=== PATIENT | female | born 1955 | race Caucasian/White ===

== ENCOUNTER 2019-03-04 06:53 | Day surgery (SDC) | payer OTHER ==
[2019-03-04] MEDS ORDERED: Lactated Ringers 1,000 ML IV SCH (07:00)
[2019-03-04] MEDS ORDERED: Sodium Chloride 0.9% 10 ML Syringe FLUSH PRN (07:00)
[2019-03-04] MEDS ORDERED: Lidocaine 1%/Sod Bicarbonate in NS 8.4% 1 ML Syringe IDERM PRN (07:00)
[2019-03-04] MEDS ORDERED: Propofol 200 MG/20 ML SDV ONE (07:14)
[2019-03-04] MEDS ORDERED: Midazolam 1 MG/ML 2 ML SDV ONE (07:14)
[2019-03-04] MEDS ORDERED: Lidocaine 1% 4 ML ONE (07:14)
--- NOTE | 2019-03-04 07:43 | PCM.PREANE ---
Preanesthetic Assessment - Anesthesia/Transfusion/Family Hx Anesthesia History: Prior Anesthesia Reaction Type of Anesthesia Reaction: Excessive Nausea/Vomiting - Review of Systems General: No Symptoms Pulmonary: Other (JOAN with CPAP use ) Cardiovascular: No Symptoms Gastrointestinal: No Symptoms Neurological: No Symptoms Other: Reports: Depression, Anxiety - Physical Assessment NPO Status Date: 03/04/19 NPO Status Time: 05:00 Vital Signs: Last Vital Signs Temp 36.8 C 03/04/19 07:10 Pulse 57 L 03/04/19 07:10 Resp 16 03/04/19 07:10 BP 121/72 03/04/19 07:10 Pulse Ox 97 03/04/19 07:10 Height: 1.68 m Weight: 78.018 kg ASA Class: 2 Mental Status: Alert & Oriented x3 Airway Class: Mallampati = 2 Dentition: Reports: Normal Dentition Thyro-Mental Finger Breadths: 2 Mouth Opening Finger Breadths: 3 ROM/Head Extension: Full Lungs: Clear to Auscultation, Normal Respiratory Effort Cardiovascular: Regular Rate, Regular Rhythm - Allergies Allergies/Adverse Reactions: Allergies Allergy/AdvReac Type Severity Reaction Status Date / Time No Known Allergies Allergy Verified 03/04/19 07:41 - Acknowledgements Anesthesia Type Planned: MAC Pt an Appropriate Candidate for the Planned Anesthesia: Yes Alternatives and Risks of Anesthesia Discussed w Pt/Guardian: Yes Pt/Guardian Understands and Agrees with Anesthesia Plan: Yes PreAnesthesia Questionnaire HEENT History: Reports: Allergic Rhinitis Cardiovascular History: Reports: Hypertension Respiratory History: Reports: Sleep Apnea Gastrointestinal History: Reports: None Genitourinary History: Reports: None 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 SPECIALIST 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: Reports: , Other (See Below) Other OB/BYN History: dense breasts Musculoskeletal History: Reports: None Neurological History: Reports: None Psychiatric History: Reports: Anxiety, Depression Endocrine/Metabolic History: Reports: Osteopenia Hematologic History: Reports: None Immunologic History: Reports: None Oncologic (Cancer) History: Reports: None Dermatologic History: Reports: Other (See Below) Other Dermatologic History: lumpectomy - Past Surgical History Head Surgeries/Procedures: Reports: None HEENT Surgical History: Reports: None Cardiovascular Surgical History: Reports: None Respiratory Surgical History: Reports: None GI Surgical History: Reports: Colonoscopy Female Surgical History: Reports: Section, Hysterectomy Endocrine Surgical History: Reports: None Neurological Surgical History: Reports: None Musculoskeletal Surgical History: Reports: None Oncologic Surgical History: Reports: None - SUBSTANCE USE Smoking Status *Q: Former Smoker Days Per Week of Alcohol Use: 2 Number of Drinks Per Day: 2 Total Drinks Per Week: 4 Recreational Drug Use History: No - HOME MEDS Home Medications: Home Meds Ascorbate Calcium/Bioflavonoid [Mckenzie-C 1,000 mg Tablet] 1 tab PO DAILY [History] Calcium Citrate/Vitamin D3 [Citracal + D Maximum Caplet] 4 tab PO DAILY [History] Cholecalciferol (Vitamin D3) [Vitamin D3] 2,000 unit PO DAILY 03/03/19 [History] Desvenlafaxine Succinate [Desvenlafaxine Succinate ER] 100 mg PO DAILY 03/03/19 [History] Docosahexanoic Acid [DHA] 100 mg PO DAILY 03/03/19 [History] Estradiol [Estrace 0.01% Vaginal Crm] 1 dose VAG Q72H 03/03/19 [History] Natural Calm 2 tsp PO DAILY 03/03/19 [History] Olmesartan Medoxomil [Benicar] 40 mg PO DAILY 03/03/19 [History] [place]-3/DHA/Epa/Fish Oil [[place] 3 500 Softgel] 1 cap PO DAILY 03/03/19 [History] - CURRENT (IN HOUSE) MEDS Current Meds: Current Medications Lactated Ringer's (Ringers, Lactated) 1,000 mls @ 125 mls/hr IV ASDIRECTED LUISA Stop: 03/04/19 23:00 Last Admin: 03/04/19 07:25 Dose: 125 mls/hr Lidocaine/Sodium Bicarbonate (Buffered Lidocaine 1% In Ns 8.4%) 0.25 ml IDERM ONETIME PRN PRN Reason: Prior to IV Start Stop: 03/04/19 18:00 Last Admin: 03/04/19 07:25 Dose: 0.25 ml Sodium Chloride (Saline Flush) 10 ml FLUSH ASDIRECTED PRN PRN Reason: Keep Vein Open Stop: 03/04/19 18:00 Discontinued Medications Lidocaine HCl (Xylocaine-Mpf 1%) Confirm Administered Dose 4 mls @ as directed .ROUTE .STK-MED ONE Stop: 03/04/19 07:15 Midazolam HCl (Versed 1 Mg/Ml) Confirm Administered Dose 2 mg .ROUTE .STK-MED ONE Stop: 03/04/19 07:15 Propofol (Diprivan 20 Ml) Confirm Administered Dose 400 mg .ROUTE .STK-MED ONE Stop: 03/04/19 07:15
[2019-03-04] MEDS ORDERED: Ondansetron 4 MG/2 ML SDV ONE (08:18)
--- NOTE | 2019-03-04 08:34 | PCM48HPAN ---
Post Anesthesia Note - EVALUATION WITHIN 48HRS OF ANESTHETIC Vital Signs in Normal Range: Yes Patient Participated in Evaluation: Yes Respiratory Function Stable: Yes Airway Patent: Yes Cardiovascular Function Stable: Yes Hydration Status Stable: Yes Pain Control Satisfactory: Yes Nausea and Vomiting Control Satisfactory: Yes Mental Status Recovered: Yes Vital Signs: Last Vital Signs See nursing notes
--- NOTE | 2019-03-04 16:04 | OR ---
DATE OF OPERATION: 03/04/2019 SURGEON: Jelani Lind MD PREOPERATIVE DIAGNOSIS: Colorectal cancer screening. POSTOPERATIVE DIAGNOSIS: Colorectal cancer screening. OPERATION PERFORMED: Screening colonoscopy. ANESTHESIA: MAC. FINDINGS: Normal colonoscopy. No polyps. No diverticulosis. Excellent bowel prep. PATHOLOGY: None. COMPLICATIONS: None. ESTIMATED BLOOD LOSS: None. DISPOSITION: Stable at the end of the procedure. INDICATION: Annemarie is a 63-year-old female, 10 years out from her last colonoscopy. She presented to my office for colorectal cancer screening. She has no family history. She is asymptomatic. She was offered a screening colonoscopy per the standard of care. She was fully informed of the major risks of the procedure. These include, but are not limited to perforation of the colon, bleeding, the risks of anesthesia and the possibility of further surgery. She gave informed consent of what was done. DESCRIPTION OF PROCEDURE: She was brought to the gastro suite and placed in the left lateral decubitus position. She was given monitored anesthesia care. A digital rectal exam was performed with copious lubrication. This was unremarkable. I introduced the colonoscope into the rectum with copious lubrication. I advanced the scope keeping the lumen in view at all times with gentle forward pressure. I reached the cecum and identified the cecum photographically. I slowly investigated the colon from the cecum back to the anus in an exam lasting 7 minutes. She had no polyps, no diverticulosis. At the end of the procedure, the scope was withdrawn. Air was evacuated on the way out. She was moved to recovery in stable condition. PLAN: She will need another colonoscopy in 10 years. MMODAL /[id number]
== END 2019-03-04 09:06 | disposition home or self-care (01) ==
LOC: JD.SDS 06:53
PROVIDERS: ATTEND Surgery
DX: Z12.11 Encounter for screening for malignant neoplasm of colon (principal); I10 Essential (primary) hypertension; F32.9 Major depressive disorder, single episode, unspecified; M19.90 Unspecified osteoarthritis, unspecified site; Z79.899 Other long term (current) drug therapy; Z87.891 Personal history of nicotine dependence
CPT/HCPCS: 45378; J2001; J2250; J2405; J2704; J7120; 00812

== ENCOUNTER 2020-03-01 10:17 | Emergency (ER) | payer OTHER ==
[2020-03-01] MEDS ORDERED: Acetaminophen 325 MG Tab PO ONE (10:56)
[2020-03-01] MEDS ORDERED: Ketorolac 60 MG/2 ML SDV IM ONE (10:56)
[2020-03-01] MEDS ORDERED: predniSONE 20 MG Tab PO ONE (10:58)
--- NOTE | 2020-03-01 11:27 | EDM.PDOC ---
ED HPI GENERAL MEDICAL PROBLEM - General Chief Complaint: Back Pain or Injury Stated Complaint: L LEG PAIN Time Seen by Provider: 03/01/20 10:44 Source of Information: Reports: Patient, RN Notes Reviewed - History of Present Illness INITIAL COMMENTS - FREE TEXT/NARRATIVE: Comes in with L low back pain that started about 2 days ago, severe pain this AM L low back that radiates down L leg. Has done some lifting last few days with fall garden stuff. Has had similar sx in the past but not this bad. Has an appt next week to see a "back specialist" in [place] Lower Back Pain Score (Numeric/FACES): 8 - Related Data Allergies Allergy/AdvReac Type Severity Reaction Status Date / Time No Known Allergies Allergy Verified 03/01/20 10:30 Home Meds: Home Meds Ascorbate Calcium/Bioflavonoid [Mckenzie-C 1,000 mg Tablet] 1 tab PO DAILY 03/03/19 [History] Calcium Citrate/Vitamin D3 [Citracal + D Maximum Caplet] 2 tab PO BID 03/03/19 [History] Cholecalciferol (Vitamin D3) [Vitamin D3] 2,000 unit PO DAILY 03/03/19 [History] Desvenlafaxine Succinate [Desvenlafaxine Succinate ER] 100 mg PO DAILY 03/03/19 [History] Docosahexaenoic Acid [DHA] 100 mg PO DAILY 03/03/19 [History] Natural Calm 2 tsp PO DAILY 03/03/19 [History] Olmesartan Medoxomil [Benicar] 40 mg PO DAILY 03/03/19 [History] [place]-3/DHA/Epa/Fish Oil [[place] 3 500 Softgel] 1 cap PO DAILY 03/03/19 [History] estradioL [Estrace 0.01% Vaginal Crm] 1 dose VAG MOTH 03/03/19 [History] Acetaminophen/HYDROcodone [[place] 325-5 MG] 1 tab PO Q6H PRN #20 tablet 03/01/20 [Rx] predniSONE [Prednisone] 50 mg PO DAILY #4 tablet 03/01/20 [Rx] Past Medical History HEENT History: Reports: Allergic Rhinitis Cardiovascular History: Reports: Hypertension Respiratory History: Reports: Sleep Apnea Gastrointestinal History: Reports: None Genitourinary History: Reports: None 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: , Other (See Below) Other NETWORK 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 History: dense breasts Musculoskeletal History: Reports: None Neurological History: Reports: None Psychiatric History: Reports: Anxiety, Depression Endocrine/Metabolic History: Reports: Osteopenia Hematologic History: Reports: None Immunologic History: Reports: None Oncologic (Cancer) History: Reports: None Dermatologic History: Reports: Other (See Below) Other Dermatologic History: lumpectomy - Past Surgical History Head Surgeries/Procedures: Reports: None HEENT Surgical History: Reports: None Cardiovascular Surgical History: Reports: None Respiratory Surgical History: Reports: None GI Surgical History: Reports: Colonoscopy Female Surgical History: Reports: Section, Hysterectomy Endocrine Surgical History: Reports: None Neurological Surgical History: Reports: None Musculoskeletal Surgical History: Reports: None Oncologic Surgical History: Reports: None Social & Family History - Tobacco Use Smoking Status *Q: Never Smoker - Caffeine Use Caffeine Use: Reports: Coffee - Recreational Drug Use Recreational Drug Use: No ED ROS GENERAL - Review of Systems Review Of Systems: See Below Constitutional: Denies: Fever, Chills, Diaphoresis HEENT: Reports: No Symptoms Respiratory: Reports: No Symptoms. Denies: Cough Cardiovascular: Denies: Chest Pain GI/Abdominal: Denies: Abdominal Pain Musculoskeletal: Reports: Back Pain, Leg Pain Skin: Reports: No Symptoms Neurological: Denies: Numbness, Tingling, Trouble Speaking, Weakness ED EXAM,LOWER BACK PAIN/INJURY - Physical Exam Exam: See Below General Appearance: Alert, Mild Distress Head: Atraumatic Neck: Supple Respiratory/Chest: No Respiratory Distress, Lungs Clear Cardiovascular: Regular Rate, Rhythm GI/Abdominal: Non-Tender Back Exam: Other (very mild tenderness L buttock, no back swelling, warmth or erythema). No: Paraspinal Tenderness, Vertebral Tenderness Extremities: Normal Inspection Neurological: Alert, No Motor/Sensory Deficits Skin Exam: Warm, Dry, Normal Color, No Rash Course - Vital Signs Last Recorded V/S: Last Vital Signs Temp 98.4 F 03/01/20 12:05 Pulse 58 L 03/01/20 12:05 Resp 18 03/01/20 12:05 BP 125/80 03/01/20 12:05 Pulse Ox 99 03/01/20 12:05 - Orders/Labs/Meds Meds: Medications Discontinued Medications Generic Name Dose Route Start Last Admin Trade Name Freq PRN Reason Stop Dose Admin Acetaminophen 975 mg 03/01/20 10:56 03/01/20 11:16 Tylenol PO 03/01/20 10:57 975 mg NOW ONE Administration Ketorolac Tromethamine 60 mg 03/01/20 10:56 03/01/20 11:17 Toradol IM 03/01/20 10:57 60 mg ONETIME ONE Administration Prednisone 40 mg 03/01/20 10:58 03/01/20 11:16 Prednisone PO 03/01/20 10:59 40 mg ONETIME ONE Administration - Re-Assessments/Exams Free Text/Narrative Re-Assessment/Exam: 03/02/20 08:40 Have given torodol IM, prednisone PO, discharge instr. as documented. Departure - Departure Time of Disposition: 11:34 Disposition: Home, Self-Care 01 Condition: Fair Clinical Impression: Back pain Qualifiers: Back pain location: low back pain Chronicity: acute Back pain laterality: left Sciatica presence: with sciatica Sciatica laterality: sciatica of left side Qualified Code(s): M54.42 - Lumbago with sciatica, left side - Discharge Information Prescriptions: Acetaminophen/HYDROcodone [[place] 325-5 MG] 1 tab PO Q6H PRN #20 tablet PRN Reason: Pain predniSONE [Prednisone] 50 mg PO DAILY #4 tablet Instructions: Acute Back Pain, Adult Referrals: Rupinder Call [facility] [facility] [Primary Care Provider] - Forms: ED Department Discharge Additional Instructions: rest back, non heavy lifting. Alternate heat and ice as needed. You have been given the first dose of prednisone here in the ED and also tylenol and torodol IM. Prednisone 50 mg Q am for the next 4 days with your next dose tomorrow AM. hydrocodone 1 tab q 6 to 8 hr as needed for severe pain. Prescriptions [facility]. See your provider next week as planned, return to ED as needed if symptoms worsening in any way. Sepsis Event Note (ED) - Evaluation Sepsis Screening Result: No Definite Risk
== END 2020-03-01 12:05 | disposition home or self-care (01) ==
LOC: JD.ED 10:17
DX: M54.42 Lumbago with sciatica, left side (principal); I10 Essential (primary) hypertension; F32.9 Major depressive disorder, single episode, unspecified; Z79.899 Other long term (current) drug therapy
CPT/HCPCS: 96372; 99283; A9270; J1885; J7512

== ENCOUNTER 2022-11-28 23:58 | Emergency (ER) | payer MEDICARE, BC ==
[2022-11-29] MEDS ORDERED: Acetaminophen 325 MG Tab PO ONE (01:08)
== END 2022-11-29 01:20 | disposition home or self-care (01) ==
LOC: JD.ED 23:58
DX: S63.502A Unspecified sprain of left wrist, initial encounter (principal); I10 Essential (primary) hypertension; Z79.899 Other long term (current) drug therapy; W18.30XA Fall on same level, unspecified, initial encounter
CPT/HCPCS: 73110-26-LT; 73110-LT; 99283